=== PATIENT | female | born 1965 | race Caucasian/White ===

== ENCOUNTER → 2018-06-29 | Outpatient (CLI) | payer OTHER | LOC: FIMAGING 12:53 | PROVIDERS: ATTEND Family Medicine | DX: Z12.31 Encounter for screening mammogram for malignant neoplasm of breast (principal); Z13.820 Encounter for screening for osteoporosis; K90.0 Celiac disease; Z78.0 Asymptomatic menopausal state; E07.9 Disorder of thyroid, unspecified; E28.39 Other primary ovarian failure; M85.80 Other specified disorders of bone density and structure, unspecified site ==